=== PATIENT | male | born 1950 | race Caucasian/White ===

== ENCOUNTER 2016-12-16 10:19 | Day surgery (SDC) | payer MEDICARE, BC, OTHER ==
--- NOTE | ~2016-12-16 | OP ---
Record Of Operation [facility] [address] [place]. [address] NAME: RAY ROBERTSON : 52 STATUS : [facility]#: [id number] AGE: 66 ADM/REG DATE : 12/16/16 MR#: [id number] REPORT SERV DATE: 12/18/16 DICTATED BY: IKE WEST III DATE: 12/18/16 REPORT STATUS : Draft TRANSCRIBED BY: MODGlenn DATE: 12/18/16 DATE OF PROCEDURE: 12/16/2016 PREOPERATIVE DIAGNOSIS: Symptomatic right inguinal hernia. POSTOPERATIVE DIAGNOSIS: Symptomatic right inguinal hernia, direct and indirect right inguinal hernia. PROCEDURE: Open Ryan tension-free repair of right inguinal hernia with Prolene mesh. SURGEON: Ike West M.D. ANESTHESIA: General with intubation. COMPLICATIONS: None. ESTIMATED BLOOD LOSS: Less than 5 mL. SPECIMENS: Hernia sac. DRAINS: None. LAP AND SPONGE COUNT: Correct x3. BRIEF HISTORY: This 66-year-old male presented with a symptomatic right inguinal hernia. It was felt that open right inguinal hernia repair was indicated. On this procedure, the risks, benefits, alternatives, including but not limited to the risk for bleeding, infection, pain, swelling, seroma formation, hematoma formation, recurrence of the hernia, nerve injury, chronic paresthesia, pain in the thigh, scrotum, or groin, chronic neuralgia or neuroma, and unforeseen complications including deep venous thrombosis, pulmonary embolus, myocardial infarction, stroke, pneumonia, and , were explained to the patient prior to surgery. The expected length of recovery was explained. The patient had questions, which were answered. He fully understood the risks and agreed to the surgery as planned. PROCEDURE IN DETAIL: After being properly identified and after discussing risks of surgery with him again in the preoperative area, the patient was taken to the operating room and placed in the supine position on the operating room table. General anesthesia was administered and he was intubated without difficulty. The abdomen and groins were prepped and draped sterilely in the usual fashion. After an appropriate "time-out" per JCAHO standards, a small oblique incision was made in the right groin from the pubic tubercle medially towards the anterosuperior iliac spine laterally. The incision was continued through the subcutaneous tissue. Hemostasis was controlled with cautery. The external oblique fascia was identified and opened along the direction of its fibers, so as to open the external inguinal ring. Using sharp dissection, the underlying ilioinguinal and genitofemoral nerves were identified. These were carefully isolated and protected to one Record Of Operation [facility] [address] [place]. [address] NAME: RAY ROBERTSON : 52 STATUS : [facility]#: [id number] AGE: 66 ADM/REG DATE : 12/16/16 MR#: [id number] REPORT SERV DATE: 12/18/16 DICTATED BY: IKE WEST III DATE: 12/18/16 REPORT STATUS : Draft TRANSCRIBED BY: TEENA DATE: 12/18/16 side. Using sharp dissection, the spermatic cord and its contents were mobilized from the floor of the canal and a Sole drain placed beneath it. There was noted to be indirect hernia sac dissecting along the spermatic cord. There was also noted to be a direct hernia dissecting through the floor of the canal, just medial to the internal ring. Using sharp dissection, the hernia sac was dissected free from the spermatic cord. The hernia sac was opened. The abdominal contents were reduced. The hernia sac was dissected down to the internal ring. The hernia sac was ligated with a 2-0 silk pursestring and doubly ligated with a 2-0 silk suture. It was amputated above these sutures. The direct hernia was then dissected free from the floor of the canal and reduced back into the abdominal cavity. The fascial edges of the small defect in the floor of the canal were reapproximated with interrupted 2-0 silk sutures, which were placed between the shelving edge of the inguinal ligament laterally and the internal oblique and transversalis fascia medially. This resulted in good closure of the defect with minimal tension. A Prolene mesh was then selected and cut to the appropriate size for the floor of the canal. A slit was made in the mesh laterally to incorporate the spermatic cord. The mesh was then secured to the floor of the canal with a running 2-0 Prolene suture, which was placed between the edge of the mesh and shelving edge of the inguinal ligament laterally and edge of the mesh and internal oblique and transversalis fascia medially. The mesh was secured lateral to the cord as well. Upon completion of this, the mesh lay nicely on the floor of the canal, was not twisted or kinked in any way. It was not under any tension. A small finger could be placed through the internal ring so that the spermatic vessels had not been unduly tightened or narrowed. Hemostasis was assured. The external oblique fascia was closed with running 2-0 silk suture. The subcutaneous tissue was closed with running 3-0 chromic suture and the skin was closed with running subcuticular 4-0 Monocryl stitch. The incision was injected with 0.5% Marcaine. Dressings were applied, anesthesia was reversed, and the patient taken to the recovery room in stable condition. He tolerated the procedure well. His family was informed of the results of surgery. The patient was discharged when stable and comfortable and able to void and ambulate. His family was advised that he should keep his wound clean and dry for 48 hours[address] He should not drive for three to four days after surgery while using narcotics and that he should resume his usual medications and he should not perform any heavy lifting for five to six weeks. He was asked to return in two weeks for followup or sooner if any fever, chills, wound drainage, or other problems prior to that time. He was given a prescription for Percocet 7.5 one t.i.d., #12, as needed for pain, which he was advised not to use while driving. RAEGAN/TEENA Ike West III, M.D. / [id number] CC: Record Of Operation [address] [address] NAME: RAY ROBERTSON : 52 STATUS : [facility] PAT#: [id number] AGE: 66 ADM/REG DATE : 12/16/16 MR#: [id number] REPORT SERV DATE: 12/18/16 DICTATED BY: IKE WEST III DATE: 12/18/16 REPORT STATUS : Draft TRANSCRIBED BY: TEENA DATE: 12/18/16 Jessee Marks III, M.D.
--- NOTE | ~2016-12-16 | PREOPHP ---
PreOp History and Physical [address] [place]. [address] NAME: RAY ROBERTSON : 52 STATUS : PRE [facility] PAT#: [id number] AGE: 66 ADM/REG DATE : MR#: [id number] REPORT SERV DATE: 12/15/16 DICTATED BY: IKE WEST III DATE: 12/13/16 REPORT STATUS : Draft TRANSCRIBED BY: MODGlenn DATE: 12/13/16 HISTORY OF PRESENT ILLNESS: This 66-year-old male comes to the operating room for open repair of right inguinal hernia. The patient has a large right inguinal hernia, which is symptomatic in terms of local pain and discomfort. The patient has had no nausea, vomiting, or obstructive symptoms. He comes to the operating room now for open repair of this hernia. PAST MEDICAL HISTORY: 1. History of reactive airways disease. 2. Diverticulosis. 3. History of prostatic hypertrophy. ALLERGIES: NONE. MEDICATIONS: Albuterol, Nasacort, doxycycline, and Symbicort. FAMILY HISTORY: Positive for diabetes and heart disease. SOCIAL HISTORY: No history of tobacco use. The patient has a history of alcohol use. REVIEW OF SYSTEMS: The patient has a history of weight loss, reflux and indigestion, and the kidney stones. His 14-point review of systems otherwise unremarkable. PHYSICAL EXAMINATION: GENERAL: This is obese male, in no acute distress. He is alert and oriented x3. VITAL SIGNS: Blood pressure 130/79, pulse 65, and temp 97.5. HEENT: Unremarkable. NEUROLOGIC: Cranial nerves 2 through 12 were normal. LUNGS: Clear. CARDIAC: Normal. ABDOMEN: Soft, nontender. The right groin has a moderate size inguinal hernia. This is reducible. The left groin is normal. EXTREMITIES: Normal. ASSESSMENT: This is a 66-year-old male with: 1. Symptomatic right inguinal hernia. 2. Obesity. PLAN: The patient comes to the operating room now for open right inguinal hernia repair. This procedure, the risks, benefits, and alternatives, including not limited to the risk for bleeding, infection, pain, swelling, scarring, deformity to the area, seroma formation, hematoma formation, recurrence of the hernia, nerve injury, chronic paresthesia or pain in the thigh, scrotum, or groin, chronic neuralgia or neuroma, and unforeseen complications including deep venous thrombosis, pulmonary embolus, myocardial infarction, stroke, pneumonia, and , have been explained to the patient prior to surgery. His questions PreOp History and Physical [address] [address] NAME: RAY ROBERTSON : 52 STATUS : PRE [facility] PAT#: [id number] AGE: 66 ADM/REG DATE : MR#: [id number] REPORT SERV DATE: 12/15/16 DICTATED BY: IKE WEST III DATE: 12/13/16 REPORT STATUS : Draft TRANSCRIBED BY: TEENA DATE: 12/13/16 have been answered. He understands the risks and agrees to surgery as planned. Harris/TEENA Ike West III, M.D. / [id number]
[~2016-12-16 10:19] MED LIST: ADVIL PO; MONODOX100 MG PO; NASACORTAQ NAS; SYMBICORT 160/41 INH INH
[2016-12-16 10:45] LABS: BASOPHILS 0.4 %; BASOPHILS ABSOLUTE 0.03 10/3/uL (0.0-0.16); EOSINOPHILS 2.4 %; EOSINOPHILS ABSOLUTE 0.19 10/3/uL (0.0-0.53); HEMATOCRIT 48.3 % (40.0-51.0); HEMOGLOBIN 16.7 g/dL (13.6-17.8); IMMATURE GRANULOCYTES 0.4 %; IMMATURE GRANULOCYTES ABSOLUTE 0.03 10/3/uL (0.0-0.11); LYMPHOCYTES 30.1 %; LYMPHOCYTES ABSOLUTE 2.37 10/3/uL (0.67-4.30); MANUAL DIFF NO %; MEAN CORPUS HGB CONC 34.6 g/dL (32.0-36.0); MEAN CORPUSCULAR VOLUME 86.9 fL (80-100); MEAN PLATELET VOLUME 11.1 fL (9.2-13.0); MONOCYTES 9.3 %; MONOCYTES ABSOLUTE 0.73 10/3/uL (0.21-1.20); NEUTROPHILS 57.4 %; NEUTROPHILS ABSOLUTE 4.52 10/3/uL (2.02-8.40); PLATELET COUNT 173 10/3/uL (150-400); RBC DISTRIBUTION WIDTH 13.2 % (12.0-16.0); RED CELL COUNT 5.56 10/6/uL (4.7-6.1); WHITE BLOOD CELLS 7.9 10/3/uL (4.5-10.5)
[2016-12-16 11:01] LABS: A/G RATIO 1.2 (0.7-1.9); ALBUMIN 3.8 G/DL (3.5-5.0); ALKALINE PHOSPHATASE 72 U/L (45-117); BUN (BLOOD UREA NITROGEN) 14 MG/DL (6-23); CHLORIDE, SERUM 106 MMOL/L (96-112); CO2 (CARBON DIOXIDE) 27 MMOL/L (24-34); GFR AFRICAN AMERICAN 91 ML/MIN (>=60); GFR NON AFRICAN AMERICAN 79 ML/MIN (>=60); GLOBULIN 3.2 G/DL (2.5-4.1); GLUCOSE, SERUM 132 MG/DL (60-99); POTASSIUM, SERUM 4.4 MMOL/L (3.5-5.3); SGOT(AST) 15 U/L (5-40); SGPT(ALT) 33 U/L (5-65); SODIUM, SERUM 141 MMOL/L (135-148)
== END 2016-12-16 14:27 | disposition home or self-care (01) ==
LOC: SDC 10:19
PROVIDERS: Surgery
PROC: 0YU50JZ Supplement Right Inguinal Region with Synthetic Substitute, Open Approach (ICD-10-PCS; principal; 2016-12-16 12:00)
DX: K40.90 Unilateral inguinal hernia, without obstruction or gangrene, not specified as recurrent (principal); J45.909 Unspecified asthma, uncomplicated; Z79.899 Other long term (current) drug therapy; E66.9 Obesity, unspecified; Z87.442 Personal history of urinary calculi; Z98.890 Other specified postprocedural states
CPT/HCPCS: 71010; 80053; 85025; 88302; 93005; C1781; J0690; J1885; J2405; J3010